=== PATIENT | female | born 1945 | race Caucasian/White ===

== ENCOUNTER 2016-06-29 15:44 | Emergency (ER) | payer OTHER | END 2016-06-29 18:30 | disposition home or self-care (01) | LOC: ER 15:44 | DX: J40 Bronchitis, not specified as acute or chronic (principal); E78.5 Hyperlipidemia, unspecified; J45.909 Unspecified asthma, uncomplicated; I10 Essential (primary) hypertension; F41.9 Anxiety disorder, unspecified; F32.9 Major depressive disorder, single episode, unspecified; R51 Headache; Z88.8 Allergy status to other drugs, medicaments and biological substances | CPT/HCPCS: 71020; 87400; 93005; 99283-25; 99284 ==